=== PATIENT | female | born 1940 | race Two or more races ===

== ENCOUNTER 2022-02-28 21:34 | Emergency (ER) | payer MEDICARE, OTHER ==
[~2022-02-28] VITALS: Ht 142.2 cm; Wt 50.9 kg
--- NOTE | 2022-02-28 21:50 | NUR ---
DR FRANCO INTO EVAL PATIENT.
[2022-02-28] MEDS ORDERED: ACYC400T19 PO (22:09)
[2022-02-28] MEDS ORDERED: PRED20TA PO (22:09)
[2022-02-28] MEDS ORDERED: predniSONE 20 MG TABLET PO ONE (22:15)
[2022-02-28] MEDS ORDERED: MAG HYDROX/AL HYDROX/SIMETH 30 ML LIQUID UDC PO ONE (22:15)
[2022-02-28] MEDS ORDERED: predniSONE 50 MG TABLET ONE (22:23)
[2022-02-28] MEDS ORDERED: MAG HYDROX/AL HYDROX/SIMETH 30 ML LIQUID UDC ONE (22:23)
[2022-02-28] MEDS ORDERED: predniSONE 10 MG TABLET ONE (22:24)
--- NOTE | 2022-02-28 22:29 | NUR ---
Patient discharged to home in stable condition. Written and verbal after care instructions given. Patient verbalizes understanding of instructions. Stressed follow up or return to ER for worsening s/s.
[2022-02-28 22:30] VITALS: BP 155/77
== END 2022-02-28 23:17 | disposition home or self-care (01) ==
LOC: ER 21:34
DX: G51.0 Bell's palsy (principal); R94.31 Abnormal electrocardiogram [ECG] [EKG]; E78.5 Hyperlipidemia, unspecified; R03.0 Elevated blood-pressure reading, without diagnosis of hypertension
CPT/HCPCS: 99283; J7512 ×2; A4663